=== PATIENT | female | born 1995 | race Caucasian/White ===

== ENCOUNTER 2021-01-26 10:35 | Observation (INO) | payer OTHER ==
[~2021-01-26] VITALS: Ht 165.1 cm; Wt 129.7 kg
== END 2021-01-26 11:00 | disposition home or self-care (01) ==
LOC: SPU 10:35 → UNDODISOB 11:00
PROVIDERS: ADMIT Obstetrics & Gynecology; ATTEND Obstetrics & Gynecology
DX: Z34.83 Encounter for supervision of other normal pregnancy, third trimester (principal); Z3A.39 39 weeks gestation of pregnancy
CPT/HCPCS: G0378